=== PATIENT | male | born 1990 | race Caucasian/White ===

== ENCOUNTER 2019-12-03 16:25 | Emergency (ER) | payer OTHER ==
[2019-12-03 16:29] VITALS: BP 131/98; PULSE 81; RESP 20; TEMP 98.5
[2019-12-03] MEDS ORDERED: HYDROcodone/APAP 5-325MG 1 EACH TAB PO STA (17:04)
--- NOTE | 2019-12-03 17:20 | XR ---
EXAMINATION TYPE: XR shoulder complete RT DATE OF EXAM: 12/03/2019 CLINICAL HISTORY: pain TECHNIQUE: Three views of the right shoulder are obtained. COMPARISON: None FINDINGS: Anterior dislocation humerus relative to the glenoid. No evidence for acute fracture. A rem ote injury of the distal right clavicle. AC joint is intact. IMPRESSION: 1. Anterior dislocation humerus relative to the glenoid. ICD 10 NO FRACTURE, INITIAL EVALUATION
--- NOTE | 2019-12-03 17:41 | ED ---
General Adult HPI - General Chief complaint: Fall Stated complaint: rt shoulder injury Time Seen by Provider: 12/03/19 16:45 Source: patient, RN notes reviewed, old records reviewed Mode of arrival: ambulatory Limitations: no limitations - History of Present Illness Initial comments: 29-year-old male patient presents to ED for chief complaint of right shoulder injury. Patient was to his lip fall forward on his outstretched right arm, pulled his shoulder slip out complaining of right shoulder pain. Denies any trauma to head or neck. Denies any other areas of pain. Systemic: Pt denies fatigue, fever/chills, rash. Pt denies weakness, night sweats, weight loss. Neuro: Pt denies headache, visual disturbances, syncope or pre-syncope. HEENT: Pt denies ocular discharge or irritation, otalgia, rhinorrhea, pharyngitis or notable lymphadenopathy. Cardiopulmonary: Pt denies chest pain, SOB, heart palpitations, dyspnea on exertion. Abdominal/GI: Pt denies abdominal pain, n/v/d. : Pt denies dysuria, burning w/ urination, frequency/urgency. Denies new onset urinary or bowel incontinence. MSK: Pt denies myalgia, loss of strength or function in extremities. Neuro: Pt denies new onset weakness, paresthesias. - Related Data Home Medications Medication Instructions Recorded Confirmed No Known Home Medications 07/19/15 12/03/19 Allergies Allergy/AdvReac Type Severity Reaction Status Date / Time acetaminophen Allergy Unknown Verified 12/03/19 17:34 [From Darvocet-N] propoxyphene napsylate Allergy Unknown Verified 12/03/19 17:34 [From Darvocet-N] Review of Systems ROS Statement: Those systems with pertinent positive or pertinent negative responses have been documented in the HPI. ROS Other: All systems not noted in ROS Statement are negative. Past Medical History Past Medical History: No Reported History Additional Past Medical History / Comment(s): [facility] History of Any Multi-Drug Resistant Organisms: None Reported Past Surgical History: Orthopedic Surgery Additional Past Surgical History / Comment(s): rt ankle, lt shoulder Past Psychological History: No Psychological Hx Reported Smoking Status: Current every day smoker Past Alcohol Use History: Occasional Past Drug Use History: None Reported General Exam - General Exam Comments Initial Comments: Constitutional: NAD, AOX3, Pt has pleasant affect. HEENT: NC/AT, trachea midline, neck supple, no lymphadenopathy. Posterior pharynx non erythematous, without exudates. External ears appear normal, without discharge. Mucous membranes moist. Eyes PERRLA, EOM intact. There is no scleral icterus. No pallor noted. Cardiopulmonary: RRR, no murmurs, rubs or gallops, no JVD noted. Lungs CTAB in anterior and posterior abel. No peripheral edema. Abdominal exam: Abdomen soft and non-distended. Abdomen non-tender to palpation in all 4 quadrants. Bowel sounds active in LLQ. No hepatosplenomegaly. No ecchymosis Neuro: CN II-XII grossly intact. No nuchal rigidity. No raccon eyes, no flores sign, no hemotympanum. No cervical spinal tenderness. MSK: Right shoulder appearance consistent with dislocation. No laceration. Shoulder reduction was performed. Neurovascular intact before and after reduction. Full active range of motion in hand and wrist intact. No other areas of tenderness. No posterior calf tenderness bilaterally, homans sign negative bilaterally. Posterior tibialis and radial pulse +2 bilaterally. Sensation intact in upper and lower extremities. Limitations: no limitations Course Vital Signs 12/03/19 16:27 Temperature 98.5 F Pulse Rate 81 Respiratory 20 Rate Blood Pressure 131/98 O2 Sat by Pulse 98 Oximetry Procedures - Orthopedic Joint Reduction Joint #1 Consent Obtained: verbal consent Side: right Joint Reduction Location: shoulder Shoulder Technique Used (if applicable): Milch Technique Used: traction/counter-traction Post-Reduction Neuro Exam: intact Post-Reduction Vascular Exam: intact Post Reduction X-Ray Obtained: Yes Post Reduction X-Ray Results: reduced Splint Applied: No (shoulder immobilizer) Patient Tolerated Procedure: well Medical Decision Making - Medical Decision Making 29-year-old male patient presents to ED for chief complaint of right shoulder injury. Patient was to his lip fall forward on his outstretched right arm, pulled his shoulder slip out complaining of right shoulder pain. Denies any trauma to head or neck. Denies any other areas of pain. Patient vital signs stable, afebrile. Physical exam displayed: Right shoulder appearance consistent with dislocation. No laceration. Shoulder reduction was performed. N eurovascular intact before and after reduction. Full active range of motion in hand and wrist intact. Plain films displayed anterior reduction femur felt of the glenoid. Shoulder is reduced without sedation. The procedure well. Repeat film displayed intervertebral reduction. Patient placed on shoulder immobilizer. Will discharge the patient orthopedic follow-up. Case discussed with Dr. Lim. Disposition Clinical Impression: Anterior shoulder dislocation Disposition: HOME SELF-CARE Condition: Stable Instructions (If sedation given, give patient instructions): Shoulder Dislocation (ED) Additional Instructions: Continue to wear shoulder immobilizer. Follow-up with orthopedic consult tomorrow. Return to ER if condition worsens. Is patient prescribed a controlled substance at d/c from ED?: No Referrals: None,Stated [Primary Care Provider] - 1-2 days Jose Raul Lucas MD [STAFF PHYSICIAN] - 1-2 days
--- NOTE | 2019-12-03 17:49 | XR ---
EXAMINATION TYPE: XR shoulder limited RT DATE OF EXAM: 12/03/2019 CLINICAL HISTORY: Relocation glenohumeral joint TECHNIQUE: One view of the right shoulder are obtained. COMPARISON: None. FINDINGS: There has been relocation of the humerus relative to the glenoid. No evidence for acute fra cture. Alignment is anatomic. IMPRESSION: As above
[2019-12-03] MEDS ORDERED: ACET/COD 300 MG/30 MG STARTER PACK 6 TAB BTL PO STA (17:53)
== END 2019-12-03 18:02 | disposition home or self-care (01) ==
LOC: EC 16:25
DX: S43.014A Anterior dislocation of right humerus, initial encounter (principal); F17.200 Nicotine dependence, unspecified, uncomplicated; Z88.5 Allergy status to narcotic agent; Z88.6 Allergy status to analgesic agent; Z88.8 Allergy status to other drugs, medicaments and biological substances; W19.XXXA Unspecified fall, initial encounter
CPT/HCPCS: 23650; 99284

== ENCOUNTER 2021-10-26 09:21 | Emergency (ER) | payer BC, OTHER ==
--- NOTE | 2021-10-26 10:03 | XR ---
Right shoulder HISTORY: Dislocation 2 views of the right shoulder, correlation prior exam 12/03/2019 Anterior right shoulder dislocation is present. Deformity the distal right clavicle is stable. Bone m ineralization is maintained. No evident fracture. Right lung apex as visualized is normal. IMPRESSION: Anterior shoulder dislocation
--- NOTE | 2021-10-26 10:08 | ED ---
Extremity Problem HPI - General Chief complaint: Extremity Problem,Nontraumatic Stated complaint: Shoulder dislocated Time Seen by Provider: 10/26/21 09:45 Source: patient, RN notes reviewed Mode of arrival: ambulatory Limitations: no limitations - History of Present Illness Initial comments: This a 31-year-old male presents emergency to the emergency Department chief complaint of right shoulder dislocation. Patient states he moved quickly consistent on some ice states he felt his shoulder pop out. Patient states he's had a prior dislocations multiple times. Patient has moderate discomfort. No paresthesias no other injuries noted. MD Complaint: extremity pain - Related Data Home Medications Medication Instructions Recorded Confirmed No Known Home Medications 07/19/15 10/26/21 Allergies Allergy/AdvReac Type Severity Reaction Status Date / Time propoxyphene napsylate Allergy Rash/Hives Verified 10/26/21 10:02 [From Rafat] Review of Systems ROS Statement: Those systems with pertinent positive or pertinent negative responses have been documented in the HPI. ROS Other: All systems not noted in ROS Statement are negative. Past Medical History Past Medical History: No Reported History Additional Past Medical History / Comment(s): [facility] History of Any Multi-Drug Resistant Organisms: None Reported Past Surgical History: Orthopedic Surgery Additional Past Surgical History / Comment(s): rt ankle, lt shoulder Past Psychological History: No Psychological Hx Reported Smoking Status: Current every day smoker Past Alcohol Use History: Occasional Past Drug Use History: None Reported General Exam Limitations: no limitations General appearance: alert, in no apparent distress Head exam: Present: atraumatic, normocephalic, normal inspection Eye exam: Present: normal appearance, PERRL, EOMI. Absent: scleral icterus, conjunctival injection, periorbital swelling ENT exam: Present: normal exam, mucous membranes moist Neck exam: Present: normal inspection. Absent: tenderness, meningismus, lymphadenopathy Respiratory exam: Present: normal lung sounds bilaterally. Absent: respiratory distress, wheezes, rales, rhonchi, stridor Cardiovascular Exam: Present: regular rate, normal rhythm, normal heart sounds. Absent: systolic murmur, diastolic murmur, rubs, gallop, clicks Extremities exam: Present: other (Neurovascular intact right arm, there is obvious dislocation right shoulder, mild tenderness) Course Vital Signs 10/26/21 09:29 Temperature 97.1 F L Pulse Rate 74 Respiratory 18 Rate Blood Pressure 143/85 O2 Sat by Pulse 96 Oximetry Procedures - Orthopedic Joint Reduction Joint #1 Consent Obtained: verbal consent Side: right Analgesia: none Shoulder Technique Used (if applicable): traction/counter-traction Post-Reduction Neuro Exam: intact Medical Decision Making - Medical Decision Making Patient has right shoulder just patient was reduced with no obligations patient we discharged stable condition return parameters were discussed. Disposition Clinical Impression: Dislocation of right shoulder joint Disposition: HOME SELF-CARE Condition: Stable Instructions (If sedation given, give patient instructions): Shoulder Dislocation (ED) Additional Instructions: Please return to the Emergency Department if symptoms worsen or any other concerns. Is patient prescribed a controlled substance at d/c from ED?: No Referrals: None,Stated [Primary Care Provider] - 1-2 days Monse Gao DO [Doctor of Osteopathic Medicine] - 1-2 days Time of Disposition: 10:31
--- NOTE | 2021-10-26 10:28 | XR ---
Right shoulder Limited HISTORY: Post reduction Single frontal view of the right shoulder correlated prior exam on same dated earlier time There is been interval reduction of patient's right shoulder dislocation. No other interval change. IMPRESSION: Reduction of right shoulder dislocation
[2021-10-26] MEDS ORDERED: ACET/COD 300 MG/30 MG STARTER PACK 6 TAB BTL PO STA (10:31)
[2021-10-26] MEDS ORDERED: CYCLOBENZAPRINE 10MG STARTER 3 TAB BTL PO STA (10:31)
[2021-10-26 10:46] VITALS: BP 148/95; PULSE 65; RESP 16; TEMP 98
== END 2021-10-26 10:45 | disposition home or self-care (01) ==
LOC: EC 09:21
DX: S43.004A Unspecified dislocation of right shoulder joint, initial encounter (principal); F17.200 Nicotine dependence, unspecified, uncomplicated; Z88.5 Allergy status to narcotic agent; X58.XXXA Exposure to other specified factors, initial encounter
CPT/HCPCS: 99283

== ENCOUNTER 2024-06-08 11:44 | Emergency (ER) | payer OTHER ==
--- NOTE | 2024-06-08 12:31 | ED ---
General Adult HPI - General Chief complaint: Extremity Injury, Upper Stated complaint: R shoulder dislocation Time Seen by Provider: 06/08/24 12:10 Source: patient, RN notes reviewed Mode of arrival: ambulatory Limitations: no limitations - History of Present Illness Initial comments: Patient is a 34-year-old male present to the emergency department with concerns for shoulder injury. Patient was walking when he tripped and fell. Patient caught himself with his right arm and believes he dislocated his shoulder. Patient has done this approximately half a dozen times in the past. Patient has discomfort in the right shoulder, increasing with movement. No other area of injury or concern. - Related Data Home Medications Medication Instructions Recorded Confirmed No Known Home Medications 07/19/15 10/26/21 Allergies Allergy/AdvReac Type Severity Reaction Status Date / Time propoxyphene napsylate Allergy Rash/Hives Verified 06/08/24 11:47 [From Rafat] Review of Systems ROS Statement: Those systems with pertinent positive or pertinent negative responses have been documented in the HPI. ROS Other: All systems not noted in ROS Statement are negative. Constitutional: Denies: fever Eyes: Denies: eye pain ENT: Denies: ear pain Musculoskeletal: Reports: as per HPI Neurological: Denies: headache, weakness Past Medical History Past Medical History: No Reported History Additional Past Medical History / Comment(s): [facility] History of Any Multi-Drug Resistant Organisms: None Reported Past Surgical History: Orthopedic Surgery Additional Past Surgical History / Comment(s): rt ankle, lt shoulder Past Psychological History: No Psychological Hx Reported Smoking Status: Vaper Past Alcohol Use History: Occasional Past Drug Use History: Marijuana General Exam Limitations: no limitations General appearance: alert, in no apparent distress Head exam: Present: atraumatic, normocephalic Eye exam: Present: normal appearance Neck exam: Present: normal inspection. Absent: tenderness Respiratory exam: Present: normal lung sounds bilaterally Cardiovascular Exam: Present: regular rate, normal rhythm GI/Abdominal exam: Present: soft. Absent: tenderness Extremities exam: Present: tenderness (Anterior right shoulder fullness with limited range of motion secondary to discomfort. Distally the extremity is neurovascularly intact) Neurological exam: Present: alert. Absent: motor sensory deficit Psychiatric exam: Present: normal affect, normal mood Skin exam: Present: normal color Course Vital Signs 06/08/24 06/08/24 06/08/24 11:45 12:50 12:54 Temperature 98.3 F Pulse Rate 65 66 76 Respiratory 20 18 16 Rate Blood Pressure 150/102 136/95 127/88 O2 Sat by Pulse 98 96 Oximetry 06/08/24 06/08/24 12:59 13:14 Temperature Pulse Rate 57 L 61 Respiratory 18 18 Rate Blood Pressure 139/89 142/89 O2 Sat by Pulse 100 97 Oximetry Procedures - Orthopedic Joint Reduction Joint #1 Consent Obtained: verbal consent Side: right Joint Reduction Location: shoulder Analgesia: procedural sedation Shoulder Technique Used (if applicable): traction/counter-traction Post-Reduction Neuro Exam: intact Post-Reduction Vascular Exam: intact Post Reduction X-Ray Obtained: Yes Post Reduction X-Ray Results: reduced Patient Tolerated Procedure: well, no complications - Procedural Sedation *Procedural Sedation Start Time: 12:50 *Procedural Sedation Stop Time: 13:13 *Risks,benefits, and alternative therapies discussed?: Yes *Patient indicates understanding of risk/benefit discussion?: Yes *Indications: fracture/dislocation reduction *Previous Adverse Reaction to Anesthesia/Sedation?: No *ASA Class: I *Mallampati Airway Score: 1 Preparation: investment executive applied, pulse oximeter, capnometry used, supplemental O2 applied IV Propofol Dose (mgs): 100 Complications: none Patient Tolerated Procedure: well, no complications Medical Decision Making - Medical Decision Making Was pt. sent in by a medical professional or institution (TOSIN Chaudhari, ARTIFICIAL TEETH INSPECTOR, urgent care, hospital, or correction...) When possible be specific @ -No Did you speak to anyone other than the patient for history (EMS, parent, family, police, friend...)? What history was obtained from this source @ -Female is present accompanying and adds additional history of patient with multiple previous dislocations, up to Did you review nursing and triage notes (agree or disagree)? Why? @ -I reviewed and agree with nursing and triage notes Were old charts reviewed (outside hosp., previous admission, EMS record, old EKG, old radiological studies, urgent care reports/EKG's, correction records)? Report findings @ -Multiple previous x-rays reviewed without concern for potential fracture Differential Diagnosis (chest pain, altered mental status, abdominal pain women, abdominal pain men, vaginal bleeding, weakness, fever, dyspnea, syncope, headache, dizziness, GI bleed, back pain, seizure, CVA, palpatations, mental health, musculoskeletal)? @ -Differential Musculoskeletal Muscular strain, contusion, ligament sprain, fracture, arthritis, septic arthritis, bursitis, cellulitis, muscle spasm, nerve compression, DVT, arterial occlusion, herpes zoster, electrolyte abnormality, tumor.... This is not meant to be in all inclusive list EKG interpreted by me (3pts min.). @ -As above X-rays interpreted by me (1pt min.). @ -X-ray shows right shoulder dislocation with probable small fracture near the lower glenoid, sliver. Repeat x-ray shows good reduction CT interpreted by me (1pt min.). @ -None done U/S interpreted by me (1pt. min.). @ -None done What testing was considered but not performed or refused? (CT, X-rays, U/S, labs)? Why? @ -None What meds were considered but not given or refused? Why? @ -None Did you discuss the management of the patient with other professionals (professionals i.e. , PA, ARTIFICIAL TEETH INSPECTOR, lab, RT, psych nurse, social worker psychiatric, wastewater process engineer, teacher, financial administration officer, onsite case manager)? Give summary @ -No Was smoking cessation discussed for >3mins.? @ -No Was critical care preformed (if so, how long)? @ -No Were there social determinants of health that impacted care today? How? (Homelessness, low income, unemployed, alcoholism, drug addiction, transportation, low edu. Level, literacy, decrease access to med. care, intermediate, rehab)? @ -No Was there de-escalation of care discussed even if they declined (Discuss DNR or withdrawal of care, Hospice)? DNR status @ -No What co-morbidities impacted this encounter? (DM, HTN, Smoking, COPD, CAD, Cancer, CVA, ARF, Chemo, Hep., AIDS, mental health diagnosis, sleep apnea, morbid obesity)? @ -History of previous shoulder dislocation Was patient admitted / discharged? Hospital course, mention meds given and route, prescriptions, significant lab abnormalities, going to OR and other pertinent info. @ -Patient presents with concerns for recurrent shoulder dislocation. Original attempt to reduce without sedation unsuccessful. Patient then did receive sedation with reduction of the shoulder joint. Patient reevaluated and updated. Undiagnosed new problem with uncertain prognosis? @ -No Drug Therapy requiring intensive monitoring for toxicity (Heparin, Nitro, Insulin, Cardizem)? @ -No Were any procedures done? @ -Reduction and conscious sedation, see above Diagnosis/symptom? @ -Anterior right shoulder dislocation Acute, or Chronic, or Acute on Chronic? @ -Acute Uncomplicated (without systemic symptoms) or Complicated (systemic symptoms)? @ - with probable underlying small fracture Side effects of treatment? @ -No Exacerbation, Progression, or Severe Exacerbation? @ -No Poses a threat to life or bodily function? How? (Chest pain, USA, MS, pneumonia, PE, COPD, DKA, ARF, appy, cholecystitis, CVA, Diverticulitis, Homicidal, Suicidal, threat to staff... and all critical care pts) @ -No Disposition Clinical Impression: Dislocation of shoulder region Disposition: HOME SELF-CARE Condition: Stable Instructions (If sedation given, give patient instructions): Moderate Sedation (ED), Shoulder Dislocation (ED) Additional Instructions: No driving today. Use sling. Please follow-up with primary care physician and orthopedics in the next couple of days for recheck. Ice to affected area. [id number] Tylenol or Motrin as needed. Return for increased pain, arm problems, weakness, loss of sensation, color change, worsening symptoms or any other concerns Is patient prescribed a controlled substance at d/c from ED?: No Referrals: Monse Gao DO [Doctor of Osteopathic Medicine] - 1-2 days Jean-Paul Fleming MD [STAFF PHYSICIAN] - 1-2 days Time of Disposition: 13:32
[2024-06-08] MEDS: PROPOFOL 10 MG/ML 20 ML VIAL IV ONE (12:52)
[2024-06-08 13:01] VITALS: RESP 18
--- NOTE | 2024-06-08 13:13 | XR ---
EXAMINATION TYPE: XR shoulder limited RT DATE OF EXAM: 06/08/2024 COMPARISON: 10/26/2021 HISTORY: 34-year-old male right shoulder pain, dislocation TECHNIQUE: 2 views FINDINGS: There is an anterior subcoracoid glenohumeral joint dislocation. Possible 1.2 cm long linea r density along the inferior corner of the glenoid. Mild degenerative change AC joint. IMPRESSION: 1. Anterior, subcoracoid glenohumeral joint dislocation. 2. Possible, subtle 1.2 cm sliver of bone/fracture fragment along the inferior aspect of the glenoid [facility], , 06/08/2024 1:11 PM
--- NOTE | 2024-06-08 13:53 | XR ---
EXAMINATION TYPE: XR shoulder limited RT DATE OF EXAM: 06/08/2024 COMPARISON: Earlier today HISTORY: 34-year-old male postreduction exam TECHNIQUE: Single AP view FINDINGS: Interval satisfactory reduction of the glenohumeral joint. The previous question sliver of bone is not clearly identified and may be obscured. Mild degenerative change of the AC joint. IMPRESSION: Interval satisfactory reduction of the glenohumeral joint. [facility], , 06/08/2024 1:51 PM
[2024-06-08 14:16] VITALS: BP 135/84; PULSE 70; TEMP 98
== END 2024-06-08 14:13 | disposition home or self-care (01) ==
LOC: EC 11:44
CPT/HCPCS: 23650; 99283

== ENCOUNTER 2025-01-04 12:26 | Emergency (ER) | payer OTHER ==
[2025-01-04] MEDS: SODIUM CHLORIDE 0.9% 1,000 ML IV ONE (12:53)
[2025-01-04] MEDS: MORPHINE SULFATE 4 MG/ML SYRINGE IVP STA (12:53)
--- NOTE | 2025-01-04 13:21 | XR ---
EXAMINATION TYPE: XR shoulder complete RT DATE OF EXAM: 01/04/2025 1:06 PM COMPARISON: 06/08/2024 CLINICAL INDICATION: Male, 34 years old with history of dislocation; PHH, pain TECHNIQUE: 3 views FINDINGS: Recurrence of an anterior subcoracoid glenohumeral joint dislocation. No large Hill-Sachs deformity i s seen. No displaced fracture fragment. Mild degenerative change AC joint with some joint space narro wing and marginal spurring. IMPRESSION: Recurrent anterior, subcoracoid glenohumeral joint dislocation. [facility], Workstation: [facility], 01/04/2025 1:19 PM
[2025-01-04] MEDS: KETAMINE 10 MG/ML 20 ML VIAL IV ONE (13:40)
[2025-01-04] MEDS: PROPOFOL 10 MG/ML 20 ML VIAL IV ONE (13:42)
--- NOTE | 2025-01-04 14:04 | XR ---
EXAMINATION TYPE: XR shoulder limited RT DATE OF EXAM: 01/04/2025 1:55 PM COMPARISON: None CLINICAL INDICATION: Male, 34 years old with history of confirm placment; PHH, pain TECHNIQUE: One view intermediate area between AP and scapular Y FINDINGS: Interval reduction of the glenohumeral joint. Positioning does not adequately assess the subacromial space. Unable to exclude abnormal narrowing of the subacromial space. Mild degenerative change at the AC joint. No displaced fracture fragments are seen. IMPRESSION: Limited by patient positioning. The view is intermediate between a scapular Y projection and AP proje ction. There has been interval reduction of the glenohumeral joint. Unable to exclude abnormal loss of the subacromial space. This appearance may be positional. Loss of the subacromial space can be seen with underlying rotator cuff tear. [facility], , 01/04/2025 2:02 PM
[2025-01-04 14:16] VITALS: RESP 16
--- NOTE | 2025-01-04 14:30 | ED ---
General Adult HPI - General Chief complaint: Extremity Problem,Nontraumatic Stated complaint: R shoulder pain Time Seen by Provider: 01/04/25 12:46 Source: patient, RN notes reviewed, old records reviewed Mode of arrival: ambulatory Limitations: no limitations - History of Present Illness Initial comments: Patient is a 34-year-old male presents emergency department right shoulder dislocation. Recurrent history of right shoulder dislocation. States that he occasionally can pop it back in without issue however was unable to do so. He did have a dislocation last night and it was able to pop it back in. Unable to do so today. States he has a history of recurrent dislocations and minimal movement can cause it. Happens yearly. Presents for further evaluation at this time. Denies any other acute complaints. No obvious injuries. He has not followed up with an orthopedic surgeon. - Related Data Home Medications Medication Instructions Recorded Confirmed No Known Home Medications 07/19/15 10/26/21 Allergies Allergy/AdvReac Type Severity Reaction Status Date / Time propoxyphene napsylate Allergy Rash/Hives Verified 01/04/25 12:40 [From [facility]] Review of Systems ROS Statement: Those systems with pertinent positive or pertinent negative responses have been documented in the HPI. Review of Systems: CONST: Denies fever EYES: Denies blurry vision ENT: Denies nasal congestion C/V: Denies Chest pain RESP: Denies shortness of breath GI: Denies abdominal pain : Denies dysuria SKIN: Denies rash. MSK: Right shoulder pain NEURO: Denies headache ROS Other: All systems not noted in ROS Statement are negative. Past Medical History Past Medical History: No Reported History Additional Past Medical History / Comment(s): [facility] History of Any Multi-Drug Resistant Organisms: None Reported Past Surgical History: Orthopedic Surgery Additional Past Surgical History / Comment(s): rt ankle, lt shoulder Past Psychological History: No Psychological Hx Reported Smoking Status: Vaper Past Alcohol Use History: Occasional Past Drug Use History: Marijuana General Exam - General Exam Comments Initial Comments: General: Appears in mild to moderate distress secondary to right shoulder dislocation. HEAD: Normal with no signs of head trauma. EYES: EOMI. ENT: Hearing grossly intact. RESPIRATORY: No respiratory distress. C/V: Regular rate and rhythm. ABD: Abdomen is nondistended. EXT: Right shoulder deformity. Suspect dislocation. SKIN: No rashes or lesions observed on exposed skin. NEURO: Alert and oriented. Neurovascular intact in the right upper extremity. Limitations: no limitations Course Vital Signs 01/04/25 01/04/25 01/04/25 12:36 12:40 13:40 Temperature 97.6 F Pulse Rate 72 96 63 Respiratory 17 20 16 Rate Blood Pressure 149/96 146/96 146/107 O2 Sat by Pulse 98 98 100 Oximetry 01/04/25 01/04/25 01/04/25 13:45 14:01 14:15 Temperature Pulse Rate 76 66 65 Respiratory 16 18 16 Rate Blood Pressure 194/114 145/101 134/100 O2 Sat by Pulse 100 100 98 Oximetry 01/04/25 14:43 Temperature 98 F Pulse Rate 98 Respiratory 16 Rate Blood Pressure 130/88 O2 Sat by Pulse 98 Oximetry Procedures - Orthopedic Joint Reduction Joint #1 Consent Obtained: written consent Side: right Joint Reduction Location: shoulder Analgesia: procedural sedation Shoulder Technique Used (if applicable): traction/counter-traction Post-Reduction Neuro Exam: intact Post-Reduction Vascular Exam: intact Post Reduction X-Ray Obtained: Yes Post Reduction X-Ray Results: reduced Patient Tolerated Procedure: no complications Additional Comments: placed in shoulder immobilizer - Procedural Sedation *Procedural Sedation Start Time: 13:38 *Procedural Sedation Stop Time: 14:15 *Risks,benefits, and alternative therapies discussed?: Yes *Patient indicates understanding of risk/benefit discussion?: Yes *Indications: fracture/dislocation reduction *Previous Adverse Reaction to Anesthesia/Sedation?: No *ASA Class: I *Mallampati Airway Score: 1 *Time of Last PO Intake: 20:30 Preparation: court monitor applied, pulse oximeter, capnometry used, supplemental O2 applied Ketamine: IV Ketamine Dose: 50 IV Propofol Dose (mgs): 50 Complications: none Patient Tolerated Procedure: well Medical Decision Making - Medical Decision Making Was pt. sent in by a medical professional or institution (, PA, EXPEDITER, urgent care, hospital, or group home...) When possible be specific @ -No Did you speak to anyone other than the patient for history (EMS, parent, family, police, friend...)? What history was obtained from this source @ -No Did you review nursing and triage notes (agree or disagree)? Why? @ -I reviewed and agree with nursing and triage notes Were old charts reviewed (outside hosp., previous admission, EMS record, old EKG, old radiological studies, urgent care reports/EKG's, group home records)? Report findings @ -No old charts were reviewed Differential Diagnosis (chest pain, altered mental status, abdominal pain women, abdominal pain men, vaginal bleeding, weakness, fever, dyspnea, syncope, headache, dizziness, GI bleed, back pain, seizure, CVA, palpatations, mental health, musculoskeletal)? @ -Shoulder dislocation, shoulder fracture, shoulder injury. This list is not inclusive. EKG interpreted by me (3pts min.). @ -None done X-rays interpreted by me (1pt min.). @ -Initial x-ray shows shoulder dislocation. Postreduction film shows satisfactory reduction. CT interpreted by me (1pt min.). @ -None done U/S interpreted by me (1pt. min.). @ -None done What testing was considered but not performed or refused? (CT, X-rays, U/S, labs)? Why? @ -None What meds were considered but not given or refused? Why? @ -None Did you discuss the management of the patient with other professionals (professionals i.e. , PA, EXPEDITER, lab, RT, psych nurse, social sciences instructor, pocket stitcher, teacher, fire officer, window caser)? Give summary @ -No Was smoking cessation discussed for >3mins.? @ -No Was critical care preformed (if so, how long)? @ -Yes, 36 minutes Were there social determinants of health that impacted care today? How? (Homelessness, low income, unemployed, alcoholism, drug addiction, transportation, low edu. Level, literacy, decrease access to med. care, skilled nursing, rehab)? @ -No Was there de-escalation of care discussed even if they declined (Discuss DNR or withdrawal of care, Hospice)? DNR status @ -No What co-morbidities impacted this encounter? (DM, HTN, Smoking, COPD, CAD, Cancer, CVA, ARF, Chemo, Hep., AIDS, mental health diagnosis, sleep apnea, morbid obesity)? @ -None Was patient admitted / discharged? Hospital course, mention meds given and route, prescriptions, significant lab abnormalities, going to OR and other pertinent info. @ -Based on patient's presentation physical exam, presents emergency department for right shoulder dislocation. Initial attempt without anything except for pain medications was unsuccessful. Therefore we will use procedural sedation for reduction. Procedural sedation and reduction were successful. See additional notes for further details. Postreduction film satisfactory. Patient is woken up and will follow-up with orthopedics. Discharged home with a shoulder immobilizer in place. Recommend he rest and use it for at least the next 24 hours. I instructed the patient to follow up with their PCP in the next 1-3 days. I explained that the patient should return to the emergency department if they experience any worsening symptoms. Strict return precautions were discussed with the patient. The patient expressed understanding of these instructions. I answered all questions that the patient had. The patient was discharged home in good condition with their prescriptions and follow up information. Undiagnosed new problem with uncertain prognosis? @ -No Drug Therapy requiring intensive monitoring for toxicity (Heparin, Nitro, Insulin, Cardizem)? @ -No Were any procedures done? @ -Procedural sedation, shoulder dislocation reduction Diagnosis/symptom? @ -Shoulder dislocation s/p reduction Acute, or Chronic, or Acute on Chronic? @ -Acute Uncomplicated (without systemic symptoms) or Complicated (systemic symptoms)? @ -Uncomplicated Side effects of treatment? @ -No Exacerbation, Progression, or Severe Exacerbation? @ -No Poses a threat to life or bodily function? How? (Chest pain, [place], [place], pneumonia, PE, COPD, DKA, ARF, appy, cholecystitis, CVA, Diverticulitis, Homicidal, Suicidal, threat to staff... and all critical care pts) @ -Unlikely at this time Critical Care Time Critical Care Time: Yes Total Critical Care Time: 36 Disposition Clinical Impression: Shoulder dislocation Disposition: HOME SELF-CARE Condition: Good Instructions (If sedation given, give patient instructions): Shoulder Dislo cation (ED), Moderate Sedation (ED) Is patient prescribed a controlled substance at d/c from ED?: No Referrals: None,Stated [Primary Care Provider] - 1-2 days Art Mendoza MD [Medical Doctor] - 1-2 days Time of Disposition: 14:30
[2025-01-04 14:44] VITALS: BP 130/88; PULSE 98; TEMP 98
== END 2025-01-04 14:43 | disposition home or self-care (01) ==
LOC: EC 12:26
DX: S43.004A Unspecified dislocation of right shoulder joint, initial encounter (principal); F17.290 Nicotine dependence, other tobacco product, uncomplicated; Z88.8 Allergy status to other drugs, medicaments and biological substances; X50.9XXA Other and unspecified overexertion or strenuous movements or postures, initial encounter
CPT/HCPCS: 73020; 73030; 99291; 23650; 96374; 96375; 96361; J2270; J2704